=== PATIENT | female | born 1990 | race Caucasian/White ===

== ENCOUNTER → 2018-05-07 12:46 | Outpatient (CLI) | payer OTHER, SELFPAY ==
[2018-05-07 14:20] LABS: 585 Gram Check PASS; Amount Collected in g 585 GRAM; Dizziness N; Postdiastolic BP 83; Postsystolic BP 135; Prediastolic 89; Presystolic 148; Pulse 97; Site of phlebotomy RIGHT AC; Swelling N; Therapeutic Phleb Comment NO COMMENT; Zero Check Sebra Scale PASS
== END ==
PROVIDERS: Visit Provider Nurse Practitioner Family
DX: D75.1 Secondary polycythemia (principal)
CPT/HCPCS: 99195